=== PATIENT | female | born 1955 | race Caucasian/White ===

== ENCOUNTER → 2024-05-28 12:39 | Outpatient (REF) | payer MEDICARE, OTHER, SELFPAY | LOC: HWRAD 12:39 | PROVIDERS: ATTENDING PHYSICIAN Nurse Practitioner Adult Health; FAMILY PHYSICIAN Family Medicine | DX: Z78.0 Asymptomatic menopausal state (principal); Z12.39 Encounter for other screening for malignant neoplasm of breast | CPT/HCPCS: 77063; 77067; 77080 ==

== ENCOUNTER 2024-11-16 13:35 | Emergency (ER) | payer MEDICARE, OTHER, SELFPAY ==
[2024-11-16] VITALS (7 sets, daily range): BP systolic 136–156; BP diastolic 69–98; BMI 22.0
[2024-11-16 13:59] LABS: % Basophils 0.6 % (0-2); % Eosinophils 1.5 % (0-6); % Immature Granulocytes 4.4 % (0-0.5); % Lymphocytes 12.4 % (20.5-51.1); % Monocytes 9.4 % (1.7-9.3); % Neutrophils 71.7 % (42.2-75.2); Absolute Eosinophils 0.1 10^3/uL (0-0.7); Absolute Immature Granulocytes 0.2 10^3/uL (0-0.05); Absolute Lymphocytes 0.7 10^3/uL (1.2-3.4); Absolute Monocytes 0.5 10^3/uL (0.1-0.6); Absolute Neutrophils 3.8 10^3/uL (1.4-6.5); Hematocrit 23.5 % (37.0-47.0); Hemoglobin 7.9 g/dL (12.0-16.0); Mean Corp Hgb Conc. 33.6 g/dL (33.0-37.0); Mean Corpuscular Hgb 32.6 pg (27.0-31.0); Mean Corpuscular Volume 97.1 fL (81.0-99.0); Mean Platelet Volume 9.3 fL (7.4-10.4); Nucleated Red Blood Cells % 0.4 %; Platelet Count 202 10^3/uL (130-400); Red Blood Cell Count 2.42 10^6/uL (4.20-5.40); Red Cell Dist. Width 17.2 % (11.5-14.5); White Blood Cell Count 5.2 10^3/uL (4.8-10.8)
[2024-11-16 14:14] LABS: COVID-19 Antigen Negative (Negative)
[2024-11-16 14:28] LABS: ALT (SGPT) 52 U/L (0-35); AST (SGOT) 53 U/L (14-36); Albumin 4.6 g/dl (3.5-5.0); Alkaline Phosphatase 107 U/L (38-126); Blood Urea Nitrogen 16 mg/dl (7-17); Calcium 9.7 mg/dl (8.4-10.2); Carbon Dioxide 19 mmol/L (22-30); Chloride 100 mmol/L (98-107); Estimated Creatinine Clearance 43 ml/min; Glucose 152 mg/dl (70-99); Lipase 247 U/L (23-300); Potassium 3.9 mmol/L (3.5-5.1); Sodium 135 mmol/L (135-145); Total Bilirubin 0.7 mg/dl (0.2-1.3); eGFR 54.39
--- NOTE | 2024-11-16 14:51 | EDRN ---
still awaiting for Dr. Ybarra to see the pt, the pts daughter approached this RN at the nurses station and asked this RN for something for nausea for the pt, this RN notified Dr. Ybarra
--- NOTE | 2024-11-16 14:59 | EDRN ---
the pts daughter asked for pain medication again, this RN notified Dr. Ybarra
--- NOTE | 2024-11-16 15:00 | EDRN ---
Dr. Ybarra currently at the pts bedside
[2024-11-16] MEDS: BENADRYL 25 MG IV (15:06)
[2024-11-16] MEDS: REGLAN 10 MG IV (15:07)
[2024-11-16] MEDS: NSS 1000 IV (15:07)
[2024-11-16 15:11] LABS: Total Protein 14.2 g/dl (6.3-8.2)
[2024-11-16] MEDS: OFIRMEV 100 IV (15:13)
--- NOTE | 2024-11-16 16:40 | ED.GENMED ---
History of Present Illness
General
Chief Complaint: Abdominal Symptoms
Source: patient
Exam Limitations: none
Time Seen by Provider: 11/16/24 14:24
History of Present Illness
History of Present Illness:
69-year-old female presents with headache, nausea and vomiting. Patient states her symptoms started today. She has a history of multiple myeloma and is about to get a workup at [facility]. She has a history of anemia. No neck pain.
Past History
Past History
ED Past Medical History: Arrthythmia, Asthma, Hypercholesterolemia and Other (Spastic dysphonia, multiple myeloma)
Phy Exam
Physical Exam
Physical Exam:
CONSTITUTIONAL Patient alert and oriented to person, place and time. Well-appearing. Vital signs reviewed.
HEAD atraumatic, normocephalic.
EYES eyelids normal to inspection, Extraocular muscles intact, Conjunctiva normal, Sclera normal.
NECK normal range of motion, Trachea midline, no jugular venous distention. No meningeal findings
RESPIRATORY CHEST No respiratory distress noted, Chest expansion equal, Bilateral breath sounds clear.
CARDIOVASCULAR regular rate and rhythm, Heart sounds normal.
ABDOMEN abdomen nontender, Bowel sounds normal. No distention.
BACK normal inspection, no obvious deformities
UPPER EXTREMITY range of motion normal, Motor strength normal, no cyanosis, no edema.
LOWER EXTREMITY range of motion normal, Motor strength normal, no cyanosis, no edema.
NEURO Speech normal, No focal motor deficits, Cutler coma scale 15, Memory normal, Cranial Nerves intact to screening exam.
SKIN skin warm, dry, and normal in color.
Course
Orders/Labs/Results
Orders:
Orders
11/16/24 13:48
Electrocardiogram (*1) Urgent
Reason for Study: Abdominal Pain
EKG- Treatment ONCE
11/16/24 13:52
COVID-19 Antigen Urgent
Source: Nasal Swab
Complete Blood Count/With Diff Urgent
Comprehensive Metabolic Panel Urgent
Lipase Urgent
Influenza A+B Rapid Molecular Urgent
MAGNUS Source: Nasal Swab
Specimen Description:
11/16/24 15:02
Ondansetron Injectable [Zofran] 4 mg .ROUTE .STK-MED ONE
11/16/24 15:03
Diphenhydramine [Benadryl] 50 mg .ROUTE .STK-MED ONE
Metoclopramide [Reglan] 10 mg .ROUTE .STK-MED ONE
11/16/24 15:05
Diphenhydramine [Benadryl] 25 mg IV NOW STA
Metoclopramide [Reglan] 10 mg IV NOW STA
11/16/24 15:06
0.9% Sodium Chloride 1000 ml [Nss] 1,000 ml IV BOLUS
Acetaminophen [Tylenol] 1,000 mg PO NOW STA
11/16/24 15:11
Acetaminophen 1000MG/100Ml [Ofirmev] 1,000 mg in 100 ml IV ONCE
Acetaminophen IV Indication:: ED Narcotic Naive Pt-ONCE
11/16/24 15:12
Acetaminophen 1000MG/100Ml [Ofirmev] 1,000 mg in 100 ml .ROUTE .STK-MED
11/16/24 16:40
Oseltamivir Phosphate [Tamiflu] 75 mg PO NOW STA
Abnormal Lab Results
11/16/24
13:52
RBC 2.42 L 10^6/uL
(4.20-5.40)
Hgb 7.9 L g/dL
(12.0-16.0)
Hct 23.5 L %
(37.0-47.0)
MCH 32.6 H pg
(27.0-31.0)
RDW 17.2 H %
(11.5-14.5)
Abs Immat Gran (auto) 0.2 H 10^3/uL
(0-0.05)
Absolute Lymphs (auto) 0.7 L 10^3/uL
(1.2-3.4)
Immature Gran % 4.4 H %
(0-0.5)
Lymphocytes % 12.4 L %
(20.5-51.1)
Monocytes % 9.4 H %
(1.7-9.3)
Carbon Dioxide 19 L mmol/L
(22-30)
Creatinine 1.1 H mg/dL
(0.6-1.0)
Glucose 152 H mg/dl
(70-99)
AST 53 H U/L
(14-36)
ALT 52 H U/L
(0-35)
Total Protein 14.2 H g/dl
(6.3-8.2)
11/16/24 13:52
11/16/24 13:52
Vital Signs
Initial and Last Documented VS:
Initial Vital Signs
Temp Pulse Resp BP Pulse Ox
100.1 F 101 16 156/98 96
11/16/24 13:44 11/16/24 13:44 11/16/24 13:44 11/16/24 13:44 11/16/24 13:44
Last Documented Vital Signs
Temp Pulse Resp BP Pulse Ox
98.4 F 95 23 141/73 95
11/16/24 16:07 11/16/24 16:45 11/16/24 16:45 11/16/24 16:45 11/16/24 16:45
MDM/Problems Addressed
MDM/Problems Addressed:
Influenza, chronic anemia, multiple myeloma
*Pulse Oximetry
Patient hypoxic: no
*EKG
Interpreted by ED Provider?: Yes
Interpretation: abnormal
Rate: tachycardiac
[place]: normal axis
Ischemia: non-specific ST changes
*Network Architect Interpretation
Rate: tachycardiac
Interpretation: normal
Rhythm: sinus
*Critical Care Note
Total Time (30-74mins, 75-104mins- exclusive of procedures): Not Applicable
Data Reviewed
Source: patient and family
Further Testing Considered But Not Given:
Consider blood cultures but influenza positive. Consider troponin but no chest pain. No clinical concern for ACS
Patient Management
Escalation/DeEscalation of care consider admission/obs:
Symptoms essentially resolved after IV fluids and medications given. Treat for influenza. Okay for outpatient follow-up
ED Attending Note
-
Portions of this chart may have been created with voice recognition software.� Occasional wrong word or��sound alike� substitutions may have occurred due to the inherent limitations of voice recognition software.
Discharge Plan
Departure
Patient Disposition: Home (Routine Discharge)
Date of Disposition: 11/16/24
Time of Disposition: 16:41
Patient with high blood pressure during this ER visit?: No
Discharge Problem:
Influenza
Instructions: Flu
Prescriptions:
New
oseltamivir [Tamiflu] 75 mg capsule
75 mg PO BID Qty: 10 0RF
ondansetron 4 mg tablet,disintegrating
4 mg PO Q8H PRN (Reason: nausea and vomiting) Qty: 14 0RF
No Action
levothyroxine 100 MCG tablet
100 mcg PO DAILY
Rx Instructions:
5 DAYS A WEEK
atorvastatin 10 mg Tablet
10 mg PO DAILY
metoprolol succinate 50 mg Tablet Extended Release 24 Hr
50 mg PO DAILY
levothyroxine 88 mcg Tablet
88 mcg PO DAILY
Rx Instructions:
2 DAYS A WEEK
zolpidem 5 mg Tablet
5 mg PO HS
Eliquis 5 mg Tablet
5 mg PO DAILY
Referrals:
Beata Hampton MD [Family Provider] -
Activity Restrictions/Additional Instructions:
Please drink plenty fluids and use Tylenol [id number] as discussed. Return immediately for difficulty breathing, tractable vomiting, weakness or any other concerns. Please see your doctor in follow-up in next 3 to 5 days.
Interventions
Interventions:
*Risk Screen - Suicide Last Done: 11/16/24 13:44
*General Assessment Last Done: 11/16/24 13:44
*Neglect/Abuse Screening Last Done: 11/16/24 13:44
ED- Fall Risk Assessment Last Done: 11/16/24 14:14
*ED COVID-19 Vaccine History Last Done: 11/16/24 14:14
*Nursing Disposition Last Done: 11/16/24 17:04
OE-Ovtcao-Lbeaaoxsng Assessment Last Done: 11/16/24 14:14
Discharge Date and Time
Discharge Date/Time: 11/16/24 17:10
Print Language: ETHIOPIAN
[2024-11-16] MEDS: TAMIFLU 75 MG PO (16:48)
== END 2024-11-16 17:10 | disposition home or self-care (01) ==
LOC: EMR 13:35
PROVIDERS: Emergency Medicine; EMERGENCY PHYSICIAN Emergency Medicine; FAMILY PHYSICIAN Family Medicine
DX: J10.1 Influenza due to other identified influenza virus with other respiratory manifestations (principal); Z11.52 Encounter for screening for COVID-19
CPT/HCPCS: 99284; 96374; 96375 ×2; 96361; 80053; 83690; 85025; 87502; 87811; 93005